=== PATIENT | female | born 1970 ===

== ENCOUNTER 2016-10-20 13:44 | Inpatient (IN) | payer OTHER ==
[2016-10-20] MEDS ORDERED: Albuterol-Ipratrop 3 mg / 0.5 (3 ml) UD INH STA (14:14)
[2016-10-20 14:43] LABS: BASO % 0.4 % (0.0-2.0); EOS # 0.1 K/uL (0.0-0.7); EOS % 0.6 % (0.0-4.0); HEMATOCRIT 42.3 % (34.0-47.0); LYMPH # 0.6 K/uL (1.0-4.3); LYMPH % 7.4 % (20.0-40.0); MEAN CELL VOLUME 90.4 fl (81.0-99.0); MEAN CORPUSCULAR HEMOGLOBIN 30.9 pg (27.0-31.0); MEAN CORPUSCULAR HGB CONC 34.2 g/dL (33.0-37.0); MEAN PLATELET VOLUME 8.9 fl (7.2-11.7); MONO # 0.7 K/uL (0.0-0.8); MONO % 7.8 % (0.0-10.0); NEUT # 7.2 K/uL (1.8-7.0); NEUT % 83.8 % (50.0-75.0); NRBC % 0.1 % (0.0-0.0); PLATELET COUNT 291 K/uL (130-400); RED CELL DISTRIBUTION WIDTH 14.3 % (11.5-14.5); WHITE BLOOD COUNT 8.6 K/uL (4.8-10.8)
[2016-10-20 15:18] LABS: ALB/GLOB RATIO 1.3 (1.0-2.1); ALKALINE PHOSPHATASE 69 U/L (38-126); ALT/SGPT 50 U/L (9-52); AST/SGOT 34 U/L (14-36); BILIRUBIN,TOTAL 0.3 mg/dl (0.2-1.3); BLOOD UREA NITROGEN 11 mg/dl (7-17); CALCIUM 9.2 mg/dL (8.4-10.2); CARBON DIOXIDE 24 mmol/L (22-30); CHLORIDE 105 mmol/L (98-107); GFR AFRICAN-AMERICAN > 60; GLUCOSE,RANDOM 116 mg/dL (65-105); POTASSIUM 3.4 MMOL/L (3.6-5.0); SODIUM 145 mmol/l (132-148); TOTAL PROTEIN 7.2 G/DL (6.3-8.2)
--- NOTE | 2016-10-20 15:29 | ED PDOC ---
HPI: SOB/CHF/COPD Time Seen by Provider: 10/20/16 14:05 Chief Complaint (Nursing): Shortness Of Breath Chief Complaint (Provider): Cough History Per: Patient Onset/Duration Of Symptoms: Days (x3 months) Current Symptoms Are (Timing): Still Present Current Respiratory Medications: Albuterol Severity: Mild Associated Symptoms: denies: Fever Additional Complaint(s): Patient is a 46 year old female presenting to the ED complaining of cough x3 months. Cough is associated with shortness of breath. When the symptoms started in July of 2016 the patient took antibiotics and was later prescribed allergy medication with mild relief. Patient still had persistent cough. Patient used her Albuterol pump with no relief. Denies fever. PMD: Johnathan Khan Past Medical History Reviewed: Historical Data, Nursing Documentation, Vital Signs Vital Signs: Last Vital Signs Temp 97.8 F 10/24/16 16:04 Pulse 70 10/24/16 16:04 Resp 20 10/24/16 16:04 BP 112/65 10/24/16 16:04 Pulse Ox 95 10/24/16 16:04 - Medical History PMH: Asthma - Family History Family History: States: No Known Family Hx - Home Medications Home Medications: Ambulatory Orders Medication Instructions Recorded Cetirizine HCl [Allergy] 10 mg PO DAILY 10/20/16 Promethazine DM [Phenergan DM 5 ml PO Q8 10/20/16 Syrup] Albuterol 0.083% [Albuterol 0.083% 2.5 mg INH RQ4 PRN #100 neb 10/24/16 Inhal Brigid (2.5 mg/3 ml) UD] Benzocaine/Menthol [Cepacol Sore 1 shalini PO Q3 PRN #60 shalini 10/24/16 Throat] Benzonatate [Tessalon Perles] 100 mg PO TID #30 sgl 10/24/16 Budesonide [Pulmicort Respules] 0.5 mg IH RBID #90 neb 10/24/16 Promethazine/Codeine 10 ml PO Q4 PRN #100 udc 10/24/16 [Phenergan/Codeine Oral Syrup] levoFLOXacin [Levaquin] 750 mg PO DAILY #5 tab 10/24/16 predniSONE [Prednisone] 20 mg PO BID #14 tab 04/06/17 - Allergies Allergies/Adverse Reactions: Allergies Allergy/AdvReac Type Severity Reaction Status Date / Time No Known Allergies Allergy Verified 10/20/16 13:54 Review of Systems ROS Statement: Except As Marked, All Systems Reviewed And Found Negative Constitutional: Negative for: Fever Respiratory: Positive for: Cough, Shortness of Breath Physical Exam - Reviewed Nursing Documentation Reviewed: Yes Vital Signs Reviewed: Yes - Physical Exam Appears: Positive for: Well, Non-toxic, No Acute Distress Head Exam: Positive for: ATRAUMATIC, NORMAL INSPECTION, NORMOCEPHALIC Skin: Positive for: Normal Color, Warm, DRY Eye Exam: Positive for: Normal appearance, EOMI Neck: Positive for: Normal, Painless ROM Cardiovascular/Chest: Positive for: Regular Rate, Rhythm. Negative for: Gallop , Murmur Respiratory: Positive for: Wheezing (diffuse ), Respiratory Distress (mild). Negative for: Normal Breath Sounds, Accessory Muscle Use, Rhonchi Extremity: Positive for: Normal ROM Neurologic/Psych: Positive for: Alert, Oriented - Laboratory Results Result Diagrams: 10/24/16 05:25 10/24/16 05:25 - ECG O2 Sat by Pulse Oximetry: 95 (RA) Pulse Ox Interpretation: Normal Medical Decision Making Medical Decision Making: Time: Impression: 46 y/o female with persistent cough and SOB Plan: CMP Troponin CBC CXR Albuterol 9 ml INH Methylpredniosolone 125 mg IV Blood Culture Nebulizer Tx Discussed with Dr. Land and Dr. Ruelas for admission. Scribe Attestation: Documented by Shaylee Menendez acting as a scribe for ROBYN Araujo. Provider Attestation: All medical record entries made by the Scribe were at my direction and personally dictated by me. I have reviewed the chart and agree that the record accurately reflects my personal performance of the history, physical exam, medical decision making, and the department course for this patient. I have also personally directed, reviewed, and agree with the discharge instructions and disposition. Disposition - Clinical Impression Clinical Impression: Dyspnea, Chest pain - Patient ED Disposition Is Patient to be Admitted: Yes - Disposition Disposition Time: 20:00 Condition: IMPROVED
[2016-10-20 15:53] LABS: NEUTROPHIL 87 % (42-75); REACTIVE LYMPHOCYTES 2 % (0-0); TOTAL CELLS COUNTED 100
--- NOTE | 2016-10-20 15:55 | RAD ---
HISTORY: cough, sob COMPARISON: No prior. TECHNIQUE: Chest PA and lateral FINDINGS: LUNGS: No active pulmonary disease. PLEURA: No significant pleural effusion identified. No pneumothorax apparent. CARDIOVASCULAR: Normal. OSSEOUS STRUCTURES: No significant abnormalities. VISUALIZED UPPER ABDOMEN: Normal. OTHER FINDINGS: None. IMPRESSION: No active disease.
[2016-10-20] MEDS ORDERED: Iohexol 300 50 ML ONE (16:43)
[2016-10-20] MEDS ORDERED: Sodium Chloride 0.9% 50 ML IV ONE (16:44)
[2016-10-20] MEDS ORDERED: Iodixanol 320 MG/ML 100 ML BOTTLE IV ONE (16:44)
[2016-10-20] MEDS ORDERED: Albuterol 0.083% Inhal Sol (2.5 mg/3 mL) UD INH STA (17:57)
[2016-10-20 18:16] LABS: ABG ALLEN TEST YES; ARTERIAL BLOOD GAS O2 CAPACITY 20.1 mL/dL (16-24); ARTERIAL BLOOD GAS O2 CONTENT 20.2 ML/dL (15-23); ARTERIAL BLOOD GAS PH 7.41 (7.35-7.45); ARTERIAL BLOOD GAS PO2 86 mm/Hg (80-100); ARTERIAL BLOOD HGB O2 SAT 94.8 % (95.0-98.0); CARBOXYHEMOGLOBIN 3.1 % (0.5-1.5); HHB -0.6 % (0.0-5.0); METHEMOGLOBIN 2.7 % (0.0-3.0)
[2016-10-20] MEDS ORDERED: Enoxaparin 80 mg Syringe SC STA (18:28)
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
[2016-10-20] MEDS ORDERED: Sodium Chloride 3% for Inhalation 4 ML VIAL.NEB IH PRN (19:27)
[2016-10-20] MEDS ORDERED: Albuterol 0.083% Inhal Sol (2.5 mg/3 mL) UD INH PRN (19:38)
[2016-10-20] MEDS: Albuterol-Ipratrop 3 mg / 0.5 (3 ml) UD INH SCH (19:55)
[2016-10-20] MEDS: Azithromycin 500 MG in Sodium Chloride 0.9% 250 ML IVPB SCH (20:44)
--- NOTE | 2016-10-20 21:32 | US ---
HISTORY: elevated ddimer . PRIORS: None. FINDINGS: 2-D, color and duplex Doppler analysis of the lower extremity venous circulation using routine protocol from the femoral veins through the popliteal veins. Venous compressibility: Normal. Flow and augmentation patterns: Normal. Visualized veins upper third of calf: Normal. Mayes cyst: None. Calf veins were not evaluated IMPRESSION: No sonographic or Doppler evidence for DVT in left lower extremity.
[2016-10-20] MEDS: Enoxaparin 80 mg Syringe SC SCH (22:05)
[2016-10-20] MEDS: Fluticasone-Salmeterol 500-50mcg Diskus IH SCH (22:10)
[2016-10-20] MEDS: guaiFENesin 100 mg/5 ml Syrup UD PO PRN (22:11)
[2016-10-20] MEDS ORDERED: Pneumococcal 23-Valent Vaccine IM ONE (22:23)
[2016-10-21] MEDS: guaiFENesin 100 mg/5 ml Syrup UD PO PRN ×3 (05:41→19:42)
[2016-10-21 07:24] LABS: BASO % 0.4 % (0.0-2.0); HEMATOCRIT 40.2 % (34.0-47.0); LYMPH % 10.7 % (20.0-40.0); MEAN CORPUSCULAR HEMOGLOBIN 30.5 pg (27.0-31.0); MEAN CORPUSCULAR HGB CONC 33.5 g/dL (33.0-37.0); MEAN PLATELET VOLUME 9.2 fl (7.2-11.7); MONO # 0.6 K/uL (0.0-0.8); MONO % 6.7 % (0.0-10.0); NEUT % 82.2 % (50.0-75.0); RED CELL DISTRIBUTION WIDTH 14.1 % (11.5-14.5); WHITE BLOOD COUNT 9.7 K/uL (4.8-10.8)
[2016-10-21 07:54] LABS: BLOOD UREA NITROGEN 11 mg/dl (7-17); CALCIUM 9.2 mg/dL (8.4-10.2); CARBON DIOXIDE 23 mmol/L (22-30); CHLORIDE 106 mmol/L (98-107); GFR AFRICAN-AMERICAN > 60; GLUCOSE,RANDOM 108 mg/dL (65-105); POTASSIUM 3.9 MMOL/L (3.6-5.0); SODIUM 142 mmol/l (132-148)
[2016-10-21] MEDS: Albuterol-Ipratrop 3 mg / 0.5 (3 ml) UD INH SCH ×4 (07:56→19:05)
--- NOTE | 2016-10-21 09:11 | CT ---
PROCEDURE: CT Chest with contrast (Pulmonary Angiogram) HISTORY: chest pain, SOB - Elevated ddimer COMPARISON: None available. TECHNIQUE: Axial computed tomography images were obtained of the chest in the pulmonary arterial phase of enhancement. Coronal and sagittal reformatted images were created and reviewed. This CT was performed using one or more of the following dose reduction techniques: Automated exposure control, adjustment of the mA and/or KV according to patient size, and/or use of iterative reconstruction technique. Intravenous contrast dose: 99 cc of Visipaque 320 Radiation dose: Total exam DLP = 448.26 mGy-cm. FINDINGS: PULMONARY ARTERIES: Suboptimal opacification of the pulmonary arteries. The assessment for the peripheral pulmonary arteries is limited in this study. No evidence of central pulmonary embolus. The main pulmonary artery is mildly enlarged. AORTA: No acute findings. No thoracic aortic aneurysm. LUNGS: Small nonspecific ground-glass opacities is seen at the right upper lobe. Otherwise no evidence of pneumonia or suspicious mass in the lungs. PLEURAL SPACES: Unremarkable. No effusion or pneuomothorax. HEART: Unremarkable. No cardiomegaly. No significant pericardial effusion. LYMPH NODES: No lymphadenopathy. BONES, CHEST WALL: Unremarkable. No fracture or destructive lesion OTHER FINDINGS: Unremarkable. IMPRESSION: Limited study due to the patient's body habitus. No evidence of central pulmonary embolus. The assessment for small peripheral pulmonary emboli is limited in this study. Small nonspecific ground-glass opacities at the right upper lung. Preliminary report was submitted by virtual Radiology.
[2016-10-21] MEDS: Azithromycin 500 MG in Sodium Chloride 0.9% 250 ML IVPB SCH (09:15)
[2016-10-21 09:29] LABS: RBC URINE 1 /hpf (0-3); URINE BILIRUBIN NEGATIVE (NEGATIVE); URINE BLOOD NEGATIVE (NEGATIVE); URINE COLOR YELLOW (YELLOW); URINE GLUCOSE (UA) NEG (Normal); URINE KETONE NEGATIVE (NEGATIVE); URINE LEUKOCYTE ESTERASE NEG Leu/uL (Negative); URINE PROTEIN NEGATIVE (NEGATIVE); URINE UROBILINOGEN 0.2-1.0 mg/dL (0.2-1.0); WBC URINE 1 /hpf (0-5)
[2016-10-21] MEDS: Enoxaparin 80 mg Syringe SC SCH (09:55)
[2016-10-21] MEDS: Fluticasone-Salmeterol 500-50mcg Diskus IH SCH ×2 (09:55→20:16)
[2016-10-21] MEDS: Pantoprazole 40 mg EC Tab PO SCH (09:56)
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
--- NOTE | 2016-10-21 17:52 | CP.PCM.PN ---
Subjective - Date & Time of Evaluation Date of Evaluation: 10/21/16 Time of Evaluation: 16:00 - Subjective Subjective: Pt seen and examined. Denied SOB but continued to have coughing productive with greenish sputum. Objective - Vital Signs/Intake and Output Vital Signs (last 24 hours): Temp Pulse Resp BP Pulse Ox 98.6 F 90 20 107/68 95 10/21/16 16:41 10/21/16 16:41 10/21/16 16:41 10/21/16 16:41 10/21/16 16:41 - Medications Medications: Current Medications Albuterol Sulfate (Albuterol 0.083% Inhal Brigid (2.5 Mg/3 Ml) Ud) 2.5 mg INH RQ4 PRN PRN Reason: Shortness of Breath Albuterol/Ipratropium (Duoneb 3 Mg/0.5 Mg (3 Ml) Ud) 3 ml INH RQID [facility] Last Admin: 10/21/16 15:52 Dose: 3 ml Budesonide (Pulmicort Respules) 0.5 mg IH RBID [facility] Enoxaparin Sodium (Lovenox) 40 mg SC DAILY [facility] PRN Reason: Protocol Guaifenesin (Robitussin) 100 mg PO Q6 PRN PRN Reason: Cough Last Admin: 10/21/16 14:36 Dose: 100 mg Azithromycin 500 mg/ Sodium (Chloride) 250 mls @ 250 mls/hr IVPB DAILY [facility] Last Admin: 10/21/16 09:15 Dose: 250 mls/hr Ceftriaxone Sodium 1 gm/ (Sodium Chloride) 100 mls @ 100 mls/hr IVPB DAILY [facility] Last Admin: 10/21/16 10:17 Dose: 100 mls/hr Methylprednisolone 40 mg/ (Sodium Chloride) 50 mls @ 100 mls/hr IVPB Q8 [facility] Morphine Sulfate (Morphine) 2 mg IVP Q6 PRN PRN Reason: chest pain Pantoprazole Sodium (Protonix Ec Tab) 40 mg PO DAILY [facility] Last Admin: 10/21/16 09:56 Dose: 40 mg Fluticasone/Salmeterol (Advair Diskus 500/50) 1 puff IH Q12 [facility] Last Admin: 10/21/16 09:55 Dose: 1 puff - Labs Labs: 10/21/16 06:05 10/21/16 06:05 - Constitutional Appears: No Acute Distress - Head Exam Head Exam: ATRAUMATIC - Eye Exam Eye Exam: absent: Scleral icterus - ENT Exam ENT Exam: Mucous Membranes Moist - Neck Exam Neck Exam: absent: Meningismus - Respiratory Exam Respiratory Exam: absent: Rhonchi, Wheezes, Respiratory Distress - Cardiovascular Exam Cardiovascular Exam: REGULAR RHYTHM, +S1, +S2 - GI/Abdominal Exam GI & Abdominal Exam: Soft. absent: Tenderness - Rectal Exam Rectal Exam: Deferred - Neurological Exam Neurological Exam: Alert, Oriented x3 - Psychiatric Exam Psychiatric exam: Normal Affect - Skin Skin Exam: Dry, Intact Assessment and Plan (1) Asthmatic bronchitis Status: Acute (2) Elevated d-dimer Status: Acute (3) DVT prophylaxis Status: Acute - Assessment and Plan (Free Text) Assessment: 46 yo female with history of obesity and Asthma admitted because of SOB accompanied with excessive coughing and chest pain. (1) Asthma Exacerbation Denied SOB but continued to have coughing productive with green phlegm continue Duoneb via nebulizer q 6 hrs round the clock Albuterol via nebulizer q 4hrs prn for SOB/wheezing. Advair 1 puff q 12hrs appreciate pulmonary consult with Dr Hale SoluMedrol 40mg IVPB q 8hrs (2) Pneumonia CT scan of chest showed glass ground glass opacity on RUL; negative for PE continue Zithromax 500mg IV daily and Rocephin 1gm IVPB daily (3) Elevated d-dimer both Venous Doppler and CTA negative for thromboembolic disease DC therapeutic Lovenox (4) DVT prophylaxis Lovenox 40mg SC daily
[2016-10-21] MEDS: Budesonide 0.5 mg/2 ml Inhal Susp UD IH SCH (19:05)
[2016-10-21] MEDS: Benzocaine/Menthol (Cepacol) Lozenge PO PRN (19:39)
[2016-10-21 21:23] LABS: RBC URINE 1 /hpf (0-3); URINE BACTERIA RARE (<OCC); URINE BILIRUBIN NEGATIVE (NEGATIVE); URINE BLOOD NEGATIVE (NEGATIVE); URINE COLOR STRAW (YELLOW); URINE GLUCOSE (UA) NEG (Normal); URINE KETONE NEGATIVE (NEGATIVE); URINE LEUKOCYTE ESTERASE NEG Leu/uL (Negative); URINE PROTEIN NEGATIVE (NEGATIVE); URINE UROBILINOGEN 0.2-1.0 mg/dL (0.2-1.0); WBC URINE < 1 /hpf (0-5)
[2016-10-21] MEDS ORDERED: Tuberculin 5 Units/0.1 ml Inj ID ONE (23:12)
[2016-10-22] MEDS: methylPREDNISolone 40 MG in Sodium Chloride 0.9% 50 ML IVPB SCH ×5 (01:03→22:35)
[2016-10-22] MEDS: Promethazine/Cod 6.25mg-10mg/5ml Syr UD PO PRN ×2 (05:22→17:53)
[2016-10-22] MEDS: Benzocaine/Menthol (Cepacol) Lozenge PO PRN (05:23)
[2016-10-22] MEDS: Budesonide 0.5 mg/2 ml Inhal Susp UD IH SCH ×2 (07:52→19:21)
[2016-10-22] MEDS: Albuterol-Ipratrop 3 mg / 0.5 (3 ml) UD INH SCH ×4 (07:52→19:21)
[2016-10-22] MEDS: Enoxaparin 40 mg Syringe SC SCH (08:51)
[2016-10-22] MEDS: Fluticasone-Salmeterol 500-50mcg Diskus IH SCH ×2 (08:51→21:15)
[2016-10-22] MEDS: Pantoprazole 40 mg EC Tab PO SCH (08:52)
[2016-10-22] MEDS: Azithromycin 500 MG in Sodium Chloride 0.9% 250 ML IVPB SCH (08:53)
--- NOTE | 2016-10-22 10:14 | CP.PCM.PN ---
<Fred Hawley - Last Filed: 10/22/16 10:53> Subjective - Date & Time of Evaluation Date of Evaluation: 10/22/16 Time of Evaluation: 09:30 - Subjective Subjective: 46 y/o F seen at bedside, seated in bed in not acute distress. She c/o persistent dry cough. Patient last episode of fever was yesterday evening 101.1. Denies SOB, palpitations, chest pain, nausea, vomiting or diarrhea. She also c/o sweating and one episode of nose bleeding early childhood after a bout of cough. On few occasions she is able to expectorate yellowish sputum but states most of the time her cough is dry. On 2L O2 nasal canula. Objective - Vital Signs/Intake and Output Vital Signs (last 24 hours): Temp Pulse Resp BP Pulse Ox 99.2 F 84 18 104/61 94 L 10/22/16 07:55 10/22/16 07:55 10/22/16 07:55 10/22/16 07:55 10/22/16 07:55 - Medications Medications: Current Medications Acetylcysteine (Acetylcysteine 20%) 2 ml INH RBID [facility] Albuterol Sulfate (Albuterol 0.083% Inhal Brigid (2.5 Mg/3 Ml) Ud) 2.5 mg INH RQ4 PRN PRN Reason: Shortness of Breath Albuterol/Ipratropium (Duoneb 3 Mg/0.5 Mg (3 Ml) Ud) 3 ml INH RQID [facility] Last Admin: 10/22/16 07:52 Dose: 3 ml Benzocaine/Menthol (Cepacol Sore Throat) 1 shalini PO Q3 PRN PRN Reason: Sore Throat Last Admin: 10/22/16 05:23 Dose: 1 shalini Benzonatate (Tessalon Perles) 100 mg PO TID [facility] Last Admin: 10/22/16 09:02 Dose: 100 mg Budesonide (Pulmicort Respules) 0.5 mg IH RBID [facility] Last Admin: 10/22/16 07:52 Dose: 0.5 mg Enoxaparin Sodium (Lovenox) 40 mg SC DAILY [facility] PRN Reason: Protocol Last Admin: 10/22/16 08:51 Dose: 40 mg Azithromycin 500 mg/ Sodium (Chloride) 250 mls @ 250 mls/hr IVPB DAILY [facility] Last Admin: 10/22/16 08:53 Dose: 250 mls/hr Ceftriaxone Sodium 1 gm/ (Sodium Chloride) 100 mls @ 100 mls/hr IVPB DAILY [facility] Last Admin: 10/22/16 09:50 Dose: 100 mls/hr Methylprednisolone 40 mg/ (Sodium Chloride) 50 mls @ 100 mls/hr IVPB Q8 [facility] Last Admin: 10/22/16 01:03 Dose: 100 mls/hr Morphine Sulfate (Morphine) 2 mg IVP Q6 PRN PRN Reason: chest pain Pantoprazole Sodium (Protonix Ec Tab) 40 mg PO DAILY [facility] Last Admin: 10/22/16 08:52 Dose: 40 mg Promethazine HCl/Codeine (Phenergan/Codeine Oral Syrup) 10 ml PO Q4 PRN PRN Reason: Cough Last Admin: 10/22/16 05:22 Dose: 10 ml Fluticasone/Salmeterol (Advair Diskus 500/50) 1 puff IH Q12 [facility] Last Admin: 10/22/16 08:51 Dose: 1 puff - Labs Labs: 10/21/16 06:05 10/21/16 06:05 - Constitutional Appears: Non-toxic, No Acute Distress, Other (Obese) - Head Exam Head Exam: ATRAUMATIC, NORMAL INSPECTION - Eye Exam Eye Exam: PERRL. absent: Conjunctival injection - ENT Exam ENT Exam: Mucous Membranes Moist, Normal Exam - Neck Exam Neck Exam: Full ROM, Normal Inspection - Respiratory Exam Respiratory Exam: Decreased Breath Sounds. absent: Accessory Muscle Use, Rales - Cardiovascular Exam Cardiovascular Exam: REGULAR RHYTHM, RRR, +S1, +S2 - GI/Abdominal Exam GI & Abdominal Exam: Soft, Normal Bowel Sounds. absent: Tenderness - Back Exam Back Exam: NORMAL INSPECTION. absent: CVA tenderness (L), CVA tenderness (R) - Neurological Exam Neurological Exam: Alert, Awake, Oriented x3 - Psychiatric Exam Psychiatric exam: Normal Affect, Normal Mood - Skin Skin Exam: Intact, Normal Color, Warm Assessment and Plan - Assessment and Plan (Free Text) Assessment: Assessment and plan: 46 y/o F with PMHx of asthma, sleep apnea and obesity admitted to hospital for fever, SOB and cough. 1-Community acquired pneumonia -CXR: shows ground glass infiltrate R/Upper lobe -Fever: Last 101.1 on 10/21/16 20:15. Last temp 10/22/16 07:55 99.2 -WBC 9.7(left shift) -Influenza negative -Ceftriazone 1gm IV daily -Azitromycin 500mg IV daily 2-Asthma Exacerbation -Hx of asthma -Wheezes on PE at the time of admission -SOB improved -Persistent cough -Start Tessalon 100mg TID -Solumedrol 40mg q8h -Advair 1 puff q12h -Albuterol q4h PRN for SOB -Start mucomyst inh -Duoneb QID -O2 2L nasal cannula 3-Sleep apnea -Hx of sleep apnea -Obesity -Daily CPAP use for sleep -Echocardiogram to rule out R/heart failure 4-Obesity -BMI 59.2 5-DVT prophylaxis -Lovenox 40mg daily <Brenda Mckeon - Last Filed: 10/22/16 11:57> Objective - Vital Signs/Intake and Output Vital Signs (last 24 hours): Temp Pulse Resp BP Pulse Ox 99.2 F 84 18 104/61 94 L 10/22/16 07:55 10/22/16 09:00 10/22/16 07:55 10/22/16 07:55 10/22/16 07:55 - Medications Medications: Current Medications Acetylcysteine (Acetylcysteine 20%) 2 ml INH RBID [facility] Albuterol Sulfate (Albuterol 0.083% Inhal Brigid (2.5 Mg/3 Ml) Ud) 2.5 mg INH RQ4 PRN PRN Reason: Shortness of Breath Albuterol/Ipratropium (Duoneb 3 Mg/0.5 Mg (3 Ml) Ud) 3 ml INH RQID [facility] Last Admin: 10/22/16 11:13 Dose: 3 ml Benzocaine/Menthol (Cepacol Sore Throat) 1 shalini PO Q3 PRN PRN Reason: Sore Throat Last Admin: 10/22/16 05:23 Dose: 1 shalini Benzonatate (Tessalon Perles) 100 mg PO TID [facility] Last Admin: 10/22/16 09:02 Dose: 100 mg Budesonide (Pulmicort Respules) 0.5 mg IH RBID [facility] Last Admin: 10/22/16 07:52 Dose: 0.5 mg Enoxaparin Sodium (Lovenox) 40 mg SC DAILY [facility] PRN Reason: Protocol Last Admin: 10/22/16 08:51 Dose: 40 mg Azithromycin 500 mg/ Sodium (Chloride) 250 mls @ 250 mls/hr IVPB DAILY [facility] Last Admin: 10/22/16 08:53 Dose: 250 mls/hr Ceftriaxone Sodium 1 gm/ (Sodium Chloride) 100 mls @ 100 mls/hr IVPB DAILY [facility] Last Admin: 10/22/16 09:50 Dose: 100 mls/hr Methylprednisolone 40 mg/ (Sodium Chloride) 50 mls @ 100 mls/hr IVPB Q8 [facility] Last Admin: 10/22/16 10:00 Dose: 100 mls/hr Morphine Sulfate (Morphine) 2 mg IVP Q6 PRN PRN Reason: chest pain Pantoprazole Sodium (Protonix Ec Tab) 40 mg PO DAILY [facility] Last Admin: 10/22/16 08:52 Dose: 40 mg Promethazine HCl/Codeine (Phenergan/Codeine Oral Syrup) 10 ml PO Q4 PRN PRN Reason: Cough Last Admin: 10/22/16 05:22 Dose: 10 ml Fluticasone/Salmeterol (Advair Diskus 500/50) 1 puff IH Q12 [facility] Last Admin: 10/22/16 08:51 Dose: 1 puff - Labs Labs: 10/21/16 06:05 10/21/16 06:05 Attending/Attestation - Attestation I have personally seen and examined this patient.: Yes I have fully participated in the care of the patient.: Yes I have reviewed all pertinent clinical information, including history, physical exam and plan: Yes Notes (Text): 10/22/16 11:54 I have seen and examined the patient with the resident. I discussed the case with Dr Hawley and agree with the findings and plan outlined in the progress note PE ruled out Asthma exacerbation, Hx of Mild Intermittent Asthma CAP Morbid Obesity BMI 59 - cont IV abx - taper IV Solumedrol - add Mucomyst , antitussives -cont Duoneb tx -Dr Hale is following the pt
--- NOTE | 2016-10-22 12:08 | CARD ---
APPROVED REPORT EXAM: Two-dimensional and M-mode echocardiogram with Doppler and color Doppler. Other Information Quality : GoodRhythm : NSR Technically limited study due to body habitus. INDICATION RV FAILURE 2D DIMENSIONS IVSd1.18 (0.7-1.1cm)LVDd4.77 (3.9-5.9cm) LVOT Diameter2.54 (1.8-2.4cm)PWd0.96 (0.7-1.1cm) IVSs1.13 (0.8-1.2cm)LVDs3.61 (2.5-4.0cm) FS (%) 24.3 %PWs1.12 (0.8-1.2cm) M-Mode DIMENSIONS Left Atrium (MM)4.28 (2.5-4.0cm)IVSd1.13 (0.7-1.1cm) Aortic Root3.25 (2.2-3.7cm)LVDd5.56 (4.0-5.6cm) Aortic Cusp Exc.2.19 (1.5-2.0cm)PWd1.00 (0.7-1.1cm) IVSs1.25 cmFS (%) 31 % LVDs3.84 (2.0-3.8cm)PWs1.38 cm Mitral Valve MV E Jqjbxbje26.5cm/sMV DECEL [id number] A Bvteauxw855.3cm/s MV JIE40tzU/A ratio0.9MVA (PHT)2.93cm2 TDI Lateral E' Peak V10.27cm/sMedial E' Peak V7.66cm/sE/Lateral E'8.6 E/Medial E'11.6 Pulmonary Valve PV Peak Shxbxxnc922.0cm/s LEFT VENTRICLE The left ventricle is normal size. There is normal left ventricular wall thickness. The left ventricular function is normal. The left ventricular ejection fraction is - 65%. There is normal LV segmental wall motion. Transmitral Doppler flow pattern is Grade I-abnormal relaxation pattern. No left ventricle thrombus noted on this study. There is no ventricular septal defect visualized. There is no left ventricular aneurysm. There is no mass noted in the left ventricle. RIGHT VENTRICLE The right ventricle is normal size. There is normal right ventricular wall thickness. The right ventricular systolic function is normal. ATRIA The left atrium is mildly dilated. There is no thrombus suspected in the left atrium. The right atrium size is normal. The interatrial septum is intact with no evidence for an atrial septal defect. AORTIC VALVE The aortic valve is normal in structure and function. No aortic regurgitation is present. There is no aortic valvular stenosis. MITRAL VALVE The mitral valve is normal in structure and function. There is no evidence of mitral valve prolapse. There is no mitral valve stenosis. There is no mitral valve regurgitation noted. TRICUSPID VALVE The tricuspid valve is normal in structure and function. There is no tricuspid valve regurgitation noted. There is no tricuspid valve prolapse or vegetation. There is no tricuspid valve stenosis. PULMONIC VALVE The pulmonary valve is normal in structure and function. There is no pulmonic valvular regurgitation. GREAT VESSELS The aortic root is normal in size. The IVC is normal in size and collapses >50% with inspiration. PERICARDIAL EFFUSION The pericardium appears normal. There is no pleural effusion. <Conclusion> The left ventricle is normal in size and wall thickness. The left ventricular function is normal. The left ventricular ejection fraction is - 65%. The left atrium is mildly dilated. The right ventricle and right atrium are normal in size. The mitral, aortic and tricuspid valves are normal.
--- NOTE | 2016-10-22 17:03 | CP.PCM.PN ---
Subjective - Date & Time of Evaluation Date of Evaluation: 10/22/16 Time of Evaluation: 20:00 - Subjective Subjective: F/U PNA Paroxismal dry cough ,chest congestion with dificulty to bring flegm with cough , no SOB Objective - Vital Signs/Intake and Output Vital Signs (last 24 hours): Temp Pulse Resp BP Pulse Ox 97.8 F 85 20 106/72 95 10/22/16 16:00 10/22/16 16:00 10/22/16 16:00 10/22/16 16:00 10/22/16 16:00 - Medications Medications: Current Medications Acetylcysteine (Acetylcysteine 20%) 2 ml INH RBID [facility] Albuterol Sulfate (Albuterol 0.083% Inhal Brigid (2.5 Mg/3 Ml) Ud) 2.5 mg INH RQ4 PRN PRN Reason: Shortness of Breath Albuterol/Ipratropium (Duoneb 3 Mg/0.5 Mg (3 Ml) Ud) 3 ml INH RQID [facility] Last Admin: 10/22/16 15:43 Dose: 3 ml Benzocaine/Menthol (Cepacol Sore Throat) 1 shalini PO Q3 PRN PRN Reason: Sore Throat Last Admin: 10/22/16 05:23 Dose: 1 shalini Benzonatate (Tessalon Perles) 100 mg PO TID [facility] Last Admin: 10/22/16 16:05 Dose: 100 mg Budesonide (Pulmicort Respules) 0.5 mg IH RBID [facility] Last Admin: 10/22/16 07:52 Dose: 0.5 mg Enoxaparin Sodium (Lovenox) 40 mg SC DAILY [facility] PRN Reason: Protocol Last Admin: 10/22/16 08:51 Dose: 40 mg Azithromycin 500 mg/ Sodium (Chloride) 250 mls @ 250 mls/hr IVPB DAILY [facility] Last Admin: 10/22/16 08:53 Dose: 250 mls/hr Ceftriaxone Sodium 1 gm/ (Sodium Chloride) 100 mls @ 100 mls/hr IVPB DAILY [facility] Last Admin: 10/22/16 09:50 Dose: 100 mls/hr Methylprednisolone 40 mg/ (Sodium Chloride) 50 mls @ 100 mls/hr IVPB Q8 [facility] Last Admin: 10/22/16 16:05 Dose: 100 mls/hr Morphine Sulfate (Morphine) 2 mg IVP Q6 PRN PRN Reason: chest pain Pantoprazole Sodium (Protonix Ec Tab) 40 mg PO DAILY [facility] Last Admin: 10/22/16 08:52 Dose: 40 mg Promethazine HCl/Codeine (Phenergan/Codeine Oral Syrup) 10 ml PO Q4 PRN PRN Reason: Cough Last Admin: 10/22/16 05:22 Dose: 10 ml Fluticasone/Salmeterol (Advair Diskus 500/50) 1 puff IH Q12 [facility] Last Admin: 10/22/16 08:51 Dose: 1 puff - Labs Labs: 10/21/16 06:05 10/21/16 06:05 - Constitutional Appears: No Acute Distress - Head Exam Head Exam: NORMAL INSPECTION - Eye Exam Eye Exam: PERRL - ENT Exam ENT Exam: Normal Oropharynx - Neck Exam Neck Exam: Normal Inspection - Respiratory Exam Respiratory Exam: Decreased Breath Sounds (at bases), Rhonchi (at bases) - Cardiovascular Exam Cardiovascular Exam: REGULAR RHYTHM - Extremities Exam Extremities Exam: Normal Inspection - Back Exam Back Exam: NORMAL INSPECTION - Neurological Exam Neurological Exam: Alert, Oriented x3 - Psychiatric Exam Psychiatric exam: Normal Mood - Skin Skin Exam: Warm Assessment and Plan (1) PNA (pneumonia) Status: Acute (2) Asthmatic bronchitis Status: Acute (3) KEN (obstructive sleep apnea) Status: Chronic - Assessment and Plan (Free Text) Plan: Continue CPAP,Phenergan ATC ,DuoNeb , Pulmicort , Rocephin , Zithromax , Taper Solu Medrol slowly, f/u PPD
[2016-10-22] MEDS: Acetylcysteine 20% Inhal Soln (4ml) INH SCH (19:21)
[2016-10-23] MEDS: Promethazine/Cod 6.25mg-10mg/5ml Syr UD PO SCH ×5 (01:38→22:16)
[2016-10-23] MEDS: Benzocaine/Menthol (Cepacol) Lozenge PO PRN ×2 (06:16→08:53)
[2016-10-23 06:51] LABS: BASO % 0.2 % (0.0-2.0); HEMATOCRIT 44.2 % (34.0-47.0); LYMPH # 1.3 K/uL (1.0-4.3); MEAN CELL VOLUME 92.4 fl (81.0-99.0); MEAN CORPUSCULAR HEMOGLOBIN 30.2 pg (27.0-31.0); MEAN CORPUSCULAR HGB CONC 32.7 g/dL (33.0-37.0); MEAN PLATELET VOLUME 9.1 fl (7.2-11.7); MONO # 0.4 K/uL (0.0-0.8); MONO % 5.6 % (0.0-10.0); NEUT # 6.1 K/uL (1.8-7.0); NEUT % 78.2 % (50.0-75.0); NRBC % 0.1 % (0.0-0.0); RED CELL DISTRIBUTION WIDTH 13.9 % (11.5-14.5); WHITE BLOOD COUNT 7.8 K/uL (4.8-10.8)
[2016-10-23] MEDS: Acetylcysteine 20% Inhal Soln (4ml) INH SCH ×2 (08:01→19:20)
[2016-10-23] MEDS: Albuterol-Ipratrop 3 mg / 0.5 (3 ml) UD INH SCH ×4 (08:01→19:21)
[2016-10-23] MEDS: Fluticasone-Salmeterol 500-50mcg Diskus IH SCH ×2 (08:47→22:21)
[2016-10-23] MEDS: methylPREDNISolone 30 MG in Sodium Chloride 0.9% 50 ML IVPB SCH ×2 (08:47→17:01)
[2016-10-23] MEDS: Pantoprazole 40 mg EC Tab PO SCH (08:48)
[2016-10-23] MEDS: Enoxaparin 40 mg Syringe SC SCH (08:48)
[2016-10-23] MEDS: Azithromycin 500 MG in Sodium Chloride 0.9% 250 ML IVPB SCH (08:49)
--- NOTE | 2016-10-23 14:17 | CP.PCM.PN ---
Subjective - Date & Time of Evaluation Date of Evaluation: 10/23/16 Time of Evaluation: 10:50 - Subjective Subjective: F/U PNA. Pt c/o of still having dry cough with difficulty to bring up phlegms which is much improved, also refers is able to walk to the bathroom with no SOB and able to laying down on bed without ortopnea. Objective - Vital Signs/Intake and Output Vital Signs (last 24 hours): Temp Pulse Resp BP Pulse Ox 98.5 F 78 18 105/67 94 L 10/23/16 12:38 10/23/16 12:38 10/23/16 12:38 10/23/16 12:38 10/23/16 12:38 - Medications Medications: Current Medications Acetylcysteine (Acetylcysteine 20%) 2 ml INH RBID [facility] Last Admin: 10/23/16 08:01 Dose: 2 ml Albuterol Sulfate (Albuterol 0.083% Inhal Brigid (2.5 Mg/3 Ml) Ud) 2.5 mg INH RQ4 PRN PRN Reason: Shortness of Breath Albuterol/Ipratropium (Duoneb 3 Mg/0.5 Mg (3 Ml) Ud) 3 ml INH RQID [facility] Last Admin: 10/23/16 11:43 Dose: 3 ml Benzocaine/Menthol (Cepacol Sore Throat) 1 shalini PO Q3 PRN PRN Reason: Sore Throat Last Admin: 10/23/16 08:53 Dose: 1 shalini Benzonatate (Tessalon Perles) 100 mg PO TID [facility] Last Admin: 10/23/16 08:47 Dose: 100 mg Budesonide (Pulmicort Respules) 0.5 mg IH RBID [facility] Last Admin: 10/22/16 19:21 Dose: 0.5 mg Enoxaparin Sodium (Lovenox) 40 mg SC DAILY [facility] PRN Reason: Protocol Last Admin: 10/23/16 08:48 Dose: 40 mg Azithromycin 500 mg/ Sodium (Chloride) 250 mls @ 250 mls/hr IVPB DAILY [facility] Last Admin: 10/23/16 08:49 Dose: 250 mls/hr Ceftriaxone Sodium 1 gm/ (Sodium Chloride) 100 mls @ 100 mls/hr IVPB DAILY [facility] Last Admin: 10/23/16 08:49 Dose: 100 mls/hr Methylprednisolone 30 mg/ (Sodium Chloride) 50 mls @ 100 mls/hr IVPB Q8 [facility] Last Admin: 10/23/16 08:47 Dose: 100 mls/hr Morphine Sulfate (Morphine) 2 mg IVP Q6 PRN PRN Reason: chest pain Pantoprazole Sodium (Protonix Ec Tab) 40 mg PO DAILY [facility] Last Admin: 10/23/16 08:48 Dose: 40 mg Promethazine HCl/Codeine (Phenergan/Codeine Oral Syrup) 10 ml PO Q4 PRN PRN Reason: Cough Last Admin: 10/22/16 17:53 Dose: 10 ml Promethazine HCl/Codeine (Phenergan/Codeine Oral Syrup) 10 ml PO QID [facility] Last Admin: 10/23/16 11:18 Dose: 10 ml Fluticasone/Salmeterol (Advair Diskus 500/50) 1 puff IH Q12 [facility] Last Admin: 10/23/16 08:47 Dose: 1 puff - Labs Labs: 10/23/16 05:15 10/21/16 06:05 - Constitutional Appears: No Acute Distress - Head Exam Head Exam: NORMAL INSPECTION - Eye Exam Eye Exam: PERRL - ENT Exam ENT Exam: Normal Exam - Neck Exam Neck Exam: Normal Inspection - Respiratory Exam Respiratory Exam: Decreased Breath Sounds (at bases), Wheezes (scattered) - Cardiovascular Exam Cardiovascular Exam: REGULAR RHYTHM - GI/Abdominal Exam GI & Abdominal Exam: Soft, Normal Bowel Sounds - Extremities Exam Extremities Exam: Normal Inspection - Back Exam Back Exam: NORMAL INSPECTION - Neurological Exam Neurological Exam: Alert, Oriented x3 - Psychiatric Exam Psychiatric exam: Normal Mood - Skin Skin Exam: Warm Assessment and Plan (1) PNA (pneumonia) Status: Acute (2) Asthmatic bronchitis Status: Acute (3) KEN (obstructive sleep apnea) Status: Chronic - Assessment and Plan (Free Text) Plan: Continue CPAP, Zithromax, Rocephin, Duoneb, Solumedrol, Pulmicort and rest of Tx. PPD planted yesterday to be read in 48 hrs.
[2016-10-23] MEDS: Budesonide 0.5 mg/2 ml Inhal Susp UD IH SCH ×2 (15:17→19:20)
--- NOTE | 2016-10-23 18:32 | CP.PCM.PN ---
Subjective - Date & Time of Evaluation Date of Evaluation: 10/23/16 Time of Evaluation: 11:30 - Subjective Subjective: Patient seen and examined bedside.Morbidly obese female ,feeling a little better but still with coughing spells , unable to expectorate any sputum.Shortness of breath improved, saturating 94% on 2 L O2 via NC Hemodynamically stable, afebrile. No acute issues overnight PPD negative until now. Objective - Vital Signs/Intake and Output Vital Signs (last 24 hours): Temp Pulse Resp BP Pulse Ox 97.9 F 89 18 114/72 95 10/23/16 16:00 10/23/16 16:00 10/23/16 16:00 10/23/16 16:00 10/23/16 16:00 - Medications Medications: Current Medications Acetylcysteine (Acetylcysteine 20%) 2 ml INH RBID [facility] Last Admin: 10/23/16 08:01 Dose: 2 ml Albuterol Sulfate (Albuterol 0.083% Inhal Brigid (2.5 Mg/3 Ml) Ud) 2.5 mg INH RQ4 PRN PRN Reason: Shortness of Breath Albuterol/Ipratropium (Duoneb 3 Mg/0.5 Mg (3 Ml) Ud) 3 ml INH RQID [facility] Last Admin: 10/23/16 15:13 Dose: 3 ml Benzocaine/Menthol (Cepacol Sore Throat) 1 shalini PO Q3 PRN PRN Reason: Sore Throat Last Admin: 10/23/16 08:53 Dose: 1 shalini Benzonatate (Tessalon Perles) 100 mg PO TID [facility] Last Admin: 10/23/16 17:01 Dose: 100 mg Budesonide (Pulmicort Respules) 0.5 mg IH RBID [facility] Last Admin: 10/23/16 15:17 Dose: 0.5 mg Enoxaparin Sodium (Lovenox) 40 mg SC DAILY [facility] PRN Reason: Protocol Last Admin: 10/23/16 08:48 Dose: 40 mg Azithromycin 500 mg/ Sodium (Chloride) 250 mls @ 250 mls/hr IVPB DAILY [facility] Last Admin: 10/23/16 08:49 Dose: 250 mls/hr Ceftriaxone Sodium 1 gm/ (Sodium Chloride) 100 mls @ 100 mls/hr IVPB DAILY [facility] Last Admin: 10/23/16 08:49 Dose: 100 mls/hr Methylprednisolone 30 mg/ (Sodium Chloride) 50 mls @ 100 mls/hr IVPB Q8 [facility] Last Admin: 10/23/16 17:01 Dose: 100 mls/hr Morphine Sulfate (Morphine) 2 mg IVP Q6 PRN PRN Reason: chest pain Pantoprazole Sodium (Protonix Ec Tab) 40 mg PO DAILY [facility] Last Admin: 10/23/16 08:48 Dose: 40 mg Promethazine HCl/Codeine (Phenergan/Codeine Oral Syrup) 10 ml PO Q4 PRN PRN Reason: Cough Last Admin: 10/22/16 17:53 Dose: 10 ml Promethazine HCl/Codeine (Phenergan/Codeine Oral Syrup) 10 ml PO QID [facility] Last Admin: 10/23/16 17:00 Dose: 10 ml Fluticasone/Salmeterol (Advair Diskus 500/50) 1 puff IH Q12 [facility] Last Admin: 10/23/16 08:47 Dose: 1 puff - Labs Labs: 10/23/16 05:15 10/21/16 06:05 - Constitutional Appears: Non-toxic, No Acute Distress, Other (morbidly obese) - Head Exam Head Exam: ATRAUMATIC, NORMOCEPHALIC - Eye Exam Eye Exam: EOMI, Normal appearance, PERRL Pupil Exam: NORMAL ACCOMODATION - ENT Exam ENT Exam: Mucous Membranes Moist, Normal Exam, Normal Oropharynx - Neck Exam Neck Exam: Full ROM, Normal Inspection Additional comments: short neck - Respiratory Exam Respiratory Exam: Clear to Ausculation Bilateral, NORMAL BREATHING PATTERN. absent: Accessory Muscle Use, Prolonged Expiratory Phase, Wheezes, Respiratory Distress - Cardiovascular Exam Cardiovascular Exam: REGULAR RHYTHM, RRR, +S1, +S2. absent: JVD - GI/Abdominal Exam GI & Abdominal Exam: Soft, Normal Bowel Sounds. absent: Distended, Guarding, Tenderness, Rebound - Rectal Exam Rectal Exam: Deferred - Extremities Exam Extremities Exam: Full ROM, Normal Capillary Refill, Normal Inspection. absent : Pedal Edema - Back Exam Back Exam: NORMAL INSPECTION - Neurological Exam Neurological Exam: Alert, Awake, CN II-XII Intact, Oriented x3 - Psychiatric Exam Psychiatric exam: Normal Affect, Normal Mood - Skin Skin Exam: Dry, Intact, Normal Color, Warm Assessment and Plan - Assessment and Plan (Free Text) Assessment: 46 yo female with history of obesity and Asthma came in complaining of SOB accompanied with excessive coughing and chest pain. Patient claimed she started coughing since 3 months ago. She was given antibiotics for a week which improved her breathing however coughing did not relent. Patient continued coughing and yesterday again started to have SOB with minimal movement Patient used her Albuterol inhaler but did not have relief with her SOB.CT chest showed ground galls opacity to RUL Patient admitted for CAP and acute asthmatic bronchitis 1 Asthma Exacerbation with acute bronchitis improving but stiul with coughing spells and unable to expectorate continue Duoneb via nebulizer q 6 hrs RTC Albuterol via nebulizer q 4hrs prn for SOB/wheezing. continue Pulmicort pulmonary consult with Dr Hale appreciated SoluMedrol 30mg IVPB q 8hrs continue mucinex, Acetylcysteine 2.CAP- POA CT scan of chest showed glass ground glass opacity on RUL; negative for PE continue Zithromax and Rocephin f/u PPD in 48 hours 3. Morbid Obesity Will need to rule out Sleep apnea. patient will benefit from sleep study 4. Elevated d-dimer both Venous Doppler and CTA negative for thromboembolic disease therapeutic Lovenox discontinued 5 DVT prophylaxis Lovenox 40mg SC daily
[2016-10-24] MEDS: methylPREDNISolone 30 MG in Sodium Chloride 0.9% 50 ML IVPB SCH ×2 (01:17→10:17)
[2016-10-24 06:46] LABS: HEMATOCRIT 42.7 % (34.0-47.0); MEAN CORPUSCULAR HEMOGLOBIN 30.4 pg (27.0-31.0); MEAN CORPUSCULAR HGB CONC 33.1 g/dL (33.0-37.0); RED CELL DISTRIBUTION WIDTH 14.1 % (11.5-14.5); WHITE BLOOD COUNT 9.2 K/uL (4.8-10.8)
[2016-10-24 07:32] LABS: CHLORIDE 105 mmol/L (98-107); POTASSIUM 4.5 MMOL/L (3.6-5.0); SODIUM 141 mmol/l (132-148)
[2016-10-24 07:35] LABS: CARBON DIOXIDE 26 mmol/L (22-30); GFR AFRICAN-AMERICAN > 60
[2016-10-24 07:36] LABS: BLOOD UREA NITROGEN 14 mg/dl (7-17); CALCIUM 9.3 mg/dL (8.4-10.2); GLUCOSE,RANDOM 123 mg/dL (65-105)
[2016-10-24] MEDS: Albuterol-Ipratrop 3 mg / 0.5 (3 ml) UD INH SCH ×3 (07:47→16:29)
[2016-10-24] MEDS: Acetylcysteine 20% Inhal Soln (4ml) INH SCH (07:47)
[2016-10-24] MEDS: Budesonide 0.5 mg/2 ml Inhal Susp UD IH SCH (07:47)
--- NOTE | 2016-10-24 10:13 | CP.PCM.DIS ---
Provider - Provider Date of Admission: 10/20/16 19:33 Attending physician: Romeo Ruelas MD Consults: pulmonary consult Time Spent in preparation of Discharge (in minutes): 20 Hospital Course - Lab Results Lab Results: Micro Results 10/21/16 20:30 Blood-Venous Blood Culture - Preliminary NO GROWTH AFTER 48 HOURS 10/21/16 20:00 Blood-Venous Blood Culture - Preliminary NO GROWTH AFTER 48 HOURS 10/23/16 07:16 Sputum Gram Stain - Final 10/23/16 07:16 Sputum Sputum Culture - Final 10/21/16 21:00 Urine,Clean Catch Urine Culture - Final No Growth (<1,000 CFU/ML) Most Recent Lab Values WBC 9.2 K/uL (4.8-10.8) 10/24/16 05:25 RBC 4.64 Mil/uL (3.80-5.20) 10/24/16 05:25 Hgb 14.1 g/dL (12.0-16.0) 10/24/16 05:25 Hct 42.7 % (34.0-47.0) 10/24/16 05:25 MCV 92.0 fl (81.0-99.0) 10/24/16 05:25 MCH 30.4 pg (27.0-31.0) 10/24/16 05:25 MCHC 33.1 g/dL (33.0-37.0) 10/24/16 05:25 RDW 14.1 % (11.5-14.5) 10/24/16 05:25 Plt Count 251 K/uL (130-400) 10/24/16 05:25 MPV 9.1 fl (7.2-11.7) 10/23/16 05:15 Neut % (Auto) 78.2 % (50.0-75.0) H 10/23/16 05:15 Lymph % (Auto) 16.0 % (20.0-40.0) L 10/23/16 05:15 [place] % (Auto) 5.6 % (0.0-10.0) 10/23/16 05:15 Eos % (Auto) 0.0 % (0.0-4.0) 10/23/16 05:15 Baso % (Auto) 0.2 % (0.0-2.0) 10/23/16 05:15 Neut # 6.1 K/uL (1.8-7.0) 10/23/16 05:15 Lymph # 1.3 K/uL (1.0-4.3) 10/23/16 05:15 [place] # 0.4 K/uL (0.0-0.8) 10/23/16 05:15 Eos # 0.0 K/uL (0.0-0.7) 10/23/16 05:15 Baso # 0.0 K/uL (0.0-0.2) 10/23/16 05:15 Neutrophils % (Manual) 87 % (42-75) H 10/20/16 14:30 Lymphocytes % (Manual) 7 % (20-50) L 10/20/16 14:30 Reactive Lymphs % 2 % (0-0) H 10/20/16 14:30 Monocytes % (Manual) 4 % (0-10) 10/20/16 14:30 Platelet Estimate Normal (NORMAL) 10/20/16 14:30 RBC Morphology Normal (NORMAL) 10/20/16 14:30 D-Dimer, Quantitative 0.58 mg/L FEU (0-0.50) H 10/20/16 14:45 pCO2 34 mm/Hg (35-45) L 10/20/16 18:10 pO2 86 mm/Hg (80-100) 10/20/16 18:10 HCO3 23.0 mmol/L (21-28) 10/20/16 18:10 ABG pH 7.41 (7.35-7.45) 10/20/16 18:10 ABG Total CO2 22.6 mmol/L (22-28) 10/20/16 18:10 ABG O2 Saturation 100.6 % (95-98) H 10/20/16 18:10 ABG O2 Content 20.2 ML/dL (15-23) 10/20/16 18:10 ABG Base Excess -2.3 mmol/L (-2.0-3.0) L 10/20/16 18:10 ABG Hemoglobin 15.1 g/dL (11.7-17.4) 10/20/16 18:10 ABG Carboxyhemoglobin 3.1 % (0.5-1.5) H 10/20/16 18:10 POC ABG HHb (Measured) -0.6 % (0.0-5.0) L 10/20/16 18:10 ABG Methemoglobin 2.7 % (0.0-3.0) 10/20/16 18:10 ABG O2 Capacity 20.1 mL/dL (16-24) 10/20/16 18:10 Steve Test Yes 10/20/16 18:10 A-a O2 Difference 157.0 mm/Hg 10/20/16 18:10 Hgb O2 Saturation 94.8 % (95.0-98.0) L 10/20/16 18:10 FiO2 40.0 % 10/20/16 18:10 Sodium 141 mmol/l (132-148) 10/24/16 05:25 Potassium 4.5 MMOL/L (3.6-5.0) 10/24/16 05:25 Chloride 105 mmol/L (98-107) 10/24/16 05:25 Carbon Dioxide 26 mmol/L (22-30) 10/24/16 05:25 Anion Gap 15 (10-20) 10/24/16 05:25 BUN 14 mg/dl (7-17) 10/24/16 05:25 Creatinine 0.7 mg/dL (0.7-1.2) 10/24/16 05:25 Est GFR ( Amer) > 60 10/24/16 05:25 Est GFR (Non-Af Amer) > 60 10/24/16 05:25 Random Glucose 123 mg/dL (65-105) H 10/24/16 05:25 Calcium 9.3 mg/dL (8.4-10.2) 10/24/16 05:25 Total Bilirubin 0.3 mg/dl (0.2-1.3) 10/20/16 15:00 AST 34 U/L (14-36) 10/20/16 15:00 ALT 50 U/L (9-52) 10/20/16 15:00 Alkaline Phosphatase 69 U/L (38-126) 10/20/16 15:00 Troponin I < 0.0120 ng/mL (0.00-0.120) 10/20/16 15:00 NT-Pro-B Natriuret Pep 176 pg/ml (0-450) 10/20/16 18:01 Total Protein 7.2 G/DL (6.3-8.2) 10/20/16 15:00 Albumin 4.0 g/dL (3.5-5.0) 10/20/16 15:00 Globulin 3.2 gm/dL (2.2-3.9) 10/20/16 15:00 Albumin/Globulin Ratio 1.3 (1.0-2.1) 10/20/16 15:00 Urine Color Straw (YELLOW) 10/21/16 21:00 Urine Clarity Clear (Clear) 10/21/16 21:00 Urine pH 5.0 (5.0-8.0) 10/21/16 21:00 Ur Specific [place] < 1.005 (1.003-1.030) 10/21/16 21:00 Urine Protein Negative mg/dL (NEGATIVE) 10/21/16 21:00 Urine Glucose (UA) Neg mg/dL (Normal) 10/21/16 21:00 Urine Ketones Negative mg/dL (NEGATIVE) 10/21/16 21:00 Urine Blood Negative (NEGATIVE) 10/21/16 21:00 Urine Nitrate Negative (NEGATIVE) 10/21/16 21:00 Urine Bilirubin Negative (NEGATIVE) 10/21/16 21:00 Urine Urobilinogen 0.2-1.0 mg/dL (0.2-1.0) 10/21/16 21:00 Ur Leukocyte Esterase Neg [place]/uL (Negative) 10/21/16 21:00 Urine RBC (Auto) 1 /hpf (0-3) 10/21/16 21:00 Urine Microscopic WBC < 1 /hpf (0-5) 10/21/16 21:00 Ur Squamous Epith Cells 3 /hpf (0-5) 10/21/16 21:00 Urine Bacteria Rare (<OCC) 10/21/16 21:00 Cold Agglutinins Negative (NEGATIVE) 10/22/16 05:50 Influenza Typ A,B (EIA) Negative for flu a/b (NEGATIVE) 10/20/16 20:40 Urine Legionella Ag Not detected (Not Detected) 10/22/16 09:43 - Hospital Course Hospital Course: 46 yo female with history of obesity and Asthma came in complaining of SOB accompanied with excessive coughing and chest pain. Patient claimed she started coughing since 3 months ago. She was given antibiotics for a week which improved her breathing however coughing did not relent. Patient continued coughing and yesterday again started to have SOB with minimal movement Patient used her Albuterol inhaler but did not have relief with her SOB.CT chest showed ground galls opacity to RUL Patient admitted for CAP and acute asthmatic bronchitis. Pulmonary consulted. Clinically improved. will discharge patient home . [place] w [facility] in 1 week 1 Asthma Exacerbation with acute bronchitis improved, fewer coughing spells no sputum production Saturating 95 5 on 2 L o2 via [place]. Able to ambulate with no SOB continue Duoneb via nebulizer q 6 hrs RTC Albuterol via nebulizer q 4hrs prn for SOB/wheezing. continue Pulmicort pulmonary consult with Dr Alexia vela Given tampering dose SoluMedrol . Will d/c on prednisone PO tapering dose continue cepacol lozenges , promethazine with codeine 2.CAP- POA CT scan of chest showed glass ground glass opacity on RUL; negative for PE Received Zithromax and Rocephin for 4 days. will d/c on Levaquine Po for 5 days PPD negative in 48 hours 3. Morbid Obesity unclear etiology Follow up with PMD/ [facility] 4. Sleep apnea uses Cpap at home 5. Elevated d-dimer both Venous Doppler and CTA negative for thromboembolic disease therapeutic Lovenox discontinued 6 DVT prophylaxis Lovenox 40mg SC daily Discharge Exam - Head Exam Head Exam: ATRAUMATIC, NORMOCEPHALIC Additional comments: Morbid obesity - Eye Exam Eye Exam: EOMI, Normal appearance, PERRL Pupil Exam: NORMAL ACCOMODATION - ENT Exam ENT Exam: Mucous Membranes Moist, Normal Exam - Neck Exam Neck exam: Full Rom, Normal Inspection - Respiratory Exam Respiratory Exam: Clear to PA & Lateral, NORMAL BREATHING PATTERN. absent: Rales, Rhonchi, Wheezes, Respiratory Distress Additional comments: coughing spells - Cardiovascular Exam Cardiovascular Exam: REGULAR RHYTHM, RRR, +S1, +S2. absent: JVD - GI/Abdominal Exam GI & Abdominal Exam: Normal Bowel Sounds, Soft. absent: Distended, Guarding, Rebound, Tenderness - Rectal Exam Rectal Exam: Deferred - Extremities Exam Extremities exam: normal capillary refill, normal inspection, pedal pulses present - Back Exam Back exam: NORMAL INSPECTION - Neurological Exam Neurological exam: Alert, CN II-XII Intact, Oriented x3, Reflexes Normal - Psychiatric Exam Psychiatric exam: Normal Affect, Normal Mood - Skin Skin Exam: Dry, Intact, Normal Color, Warm Discharge Plan - Discharge Medications Prescriptions: Fluticasone/Salmeterol 500/50 [Advair Diskus 500/50] 1 puff IH Q12 #60 puff Albuterol 0.083% [Albuterol 0.083% Inhal Brigid (2.5 mg/3 ml) UD] 2.5 mg INH RQ4 PRN #100 neb PRN Reason: Shortness Of Breath Benzocaine/Menthol [Cepacol Sore Throat] 1 shalini PO Q3 PRN #60 shalini PRN Reason: Sore Throat levoFLOXacin [Levaquin] 750 mg PO DAILY #5 tab Promethazine/Codeine [Phenergan/Codeine Oral Syrup] 10 ml PO Q4 PRN #100 udc PRN Reason: Cough Budesonide [Pulmicort Respules] 0.5 mg IH RBID #90 neb Benzonatate [Tessalon Perles] 100 mg PO TID #30 sgl - Follow Up Plan Condition: IMPROVED Disposition: HOME/ ROUTINE Patient education suggested?: Yes Instructions: Bronchospasm (DC), Acute Bronchitis (GEN) Referrals: [facility] [Outside]
[2016-10-24] MEDS: Promethazine/Cod 6.25mg-10mg/5ml Syr UD PO SCH ×2 (10:14→15:56)
[2016-10-24] MEDS: Enoxaparin 40 mg Syringe SC SCH (10:15)
[2016-10-24] MEDS: Fluticasone-Salmeterol 500-50mcg Diskus IH SCH (10:16)
[2016-10-24] MEDS: Azithromycin 500 MG in Sodium Chloride 0.9% 250 ML IVPB SCH (10:16)
[2016-10-24] MEDS: Pantoprazole 40 mg EC Tab PO SCH (10:17)
--- NOTE | 2016-10-24 11:19 | RAD ---
HISTORY: PNA COMPARISON: 10/20/2016 TECHNIQUE: Chest PA and lateral FINDINGS: LUNGS: The lungs are well inflated and clear. PLEURA: No significant pleural effusion identified. No pneumothorax apparent. CARDIOVASCULAR: Normal. OSSEOUS STRUCTURES: No significant abnormalities. VISUALIZED UPPER ABDOMEN: Normal. OTHER FINDINGS: None. IMPRESSION: No active pulmonary disease.
--- NOTE | 2016-10-24 14:40 | CP.PCM.PN ---
Subjective - Date & Time of Evaluation Date of Evaluation: 10/24/16 Time of Evaluation: 11:10 - Subjective Subjective: F/U PNA Pt still having cough, non productive, have sensation of discomfort lower part of the throat, at times bringing stimulus to cough, no POWERS. Objective - Vital Signs/Intake and Output Vital Signs (last 24 hours): Temp Pulse Resp BP Pulse Ox 97.7 F 80 18 120/73 94 L 10/24/16 11:57 10/24/16 11:57 10/24/16 11:57 10/24/16 11:57 10/24/16 11:57 Intake and Output: 10/24/16 10/24/16 06:59 18:59 Intake Total 900 Balance 900 - Medications Medications: Current Medications Acetylcysteine (Acetylcysteine 20%) 2 ml INH RBID [facility] Last Admin: 10/24/16 07:47 Dose: 2 ml Albuterol Sulfate (Albuterol 0.083% Inhal Brigid (2.5 Mg/3 Ml) Ud) 2.5 mg INH RQ4 PRN PRN Reason: Shortness of Breath Albuterol/Ipratropium (Duoneb 3 Mg/0.5 Mg (3 Ml) Ud) 3 ml INH RQID [facility] Last Admin: 10/24/16 11:08 Dose: 3 ml Benzocaine/Menthol (Cepacol Sore Throat) 1 shalini PO Q3 PRN PRN Reason: Sore Throat Last Admin: 10/23/16 08:53 Dose: 1 shalini Benzonatate (Tessalon Perles) 100 mg PO TID [facility] Last Admin: 10/24/16 10:17 Dose: 100 mg Budesonide (Pulmicort Respules) 0.5 mg IH RBID [facility] Last Admin: 10/24/16 07:47 Dose: 0.5 mg Enoxaparin Sodium (Lovenox) 40 mg SC DAILY [facility] PRN Reason: Protocol Last Admin: 10/24/16 10:15 Dose: 40 mg Azithromycin 500 mg/ Sodium (Chloride) 250 mls @ 250 mls/hr IVPB DAILY [facility] Last Admin: 10/24/16 10:16 Dose: 250 mls/hr Ceftriaxone Sodium 1 gm/ (Sodium Chloride) 100 mls @ 100 mls/hr IVPB DAILY [facility] Last Admin: 10/24/16 10:15 Dose: 100 mls/hr Methylprednisolone 30 mg/ (Sodium Chloride) 50 mls @ 100 mls/hr IVPB Q8 [facility] Last Admin: 10/24/16 10:17 Dose: 100 mls/hr Morphine Sulfate (Morphine) 2 mg IVP Q6 PRN PRN Reason: chest pain Pantoprazole Sodium (Protonix Ec Tab) 40 mg PO DAILY [facility] Last Admin: 10/24/16 10:17 Dose: 40 mg Promethazine HCl/Codeine (Phenergan/Codeine Oral Syrup) 10 ml PO Q4 PRN PRN Reason: Cough Last Admin: 10/22/16 17:53 Dose: 10 ml Promethazine HCl/Codeine (Phenergan/Codeine Oral Syrup) 10 ml PO QID [facility] Last Admin: 10/24/16 10:14 Dose: 10 ml Fluticasone/Salmeterol (Advair Diskus 500/50) 1 puff IH Q12 [facility] Last Admin: 10/24/16 10:16 Dose: 1 puff - Labs Labs: 10/24/16 05:25 10/24/16 05:25 - Constitutional Appears: No Acute Distress - Head Exam Head Exam: NORMAL INSPECTION - Eye Exam Eye Exam: PERRL - ENT Exam ENT Exam: Normal Exam - Neck Exam Neck Exam: Normal Inspection - Respiratory Exam Respiratory Exam: Decreased Breath Sounds (at bases) - Cardiovascular Exam Cardiovascular Exam: REGULAR RHYTHM - GI/Abdominal Exam GI & Abdominal Exam: Soft, Normal Bowel Sounds - Extremities Exam Extremities Exam: Normal Inspection - Back Exam Back Exam: NORMAL INSPECTION - Neurological Exam Neurological Exam: Alert, Oriented x3 - Skin Skin Exam: Warm Assessment and Plan (1) PNA (pneumonia) Status: Acute (2) Asthmatic bronchitis Status: Acute (3) KEN (obstructive sleep apnea) Status: Chronic - Assessment and Plan (Free Text) Plan: F/U CXR today, ENT consult.
[2016-10-24 16:05] VITALS: BP 112/65; PULSE 70; RESP 20; TEMP 97.8; O2SAT 95
== END 2016-10-24 17:30 | disposition home or self-care (01) | DRG 588 ==
LOC: H.ER 13:44 → H.ERHOLD 19:33 → H.TEL 21:20
PROC: 5A09457 Assistance with Respiratory Ventilation, 24-96 Consecutive Hours, Continuous Positive Airway Pressure (ICD-10-PCS; principal; 2016-10-21)
DX: J45.21 Mild intermittent asthma with (acute) exacerbation (principal); J18.9 Pneumonia, unspecified organism; G47.33 Obstructive sleep apnea (adult) (pediatric); E66.01 Morbid (severe) obesity due to excess calories; Z87.891 Personal history of nicotine dependence; Z68.43 Body mass index [BMI] 50.0-59.9, adult